=== PATIENT | female | born 1950 | race Caucasian/White ===

== ENCOUNTER 2021-09-18 15:28 | Inpatient (IN) ==
[2021-09-18] MEDS ORDERED: SODIUM CHLORIDE 0.9% 1,000 ML IV STA (15:45)
[2021-09-18] MEDS ORDERED: HYDROmorphone 2 MG/1 ML VIAL IV STA (15:46)
[2021-09-18] MEDS ORDERED: ONDANSETRON 4 MG/2 ML VIAL IV STA (15:46)
[2021-09-18 16:45] LABS: Basophils % 0.2 % (0.0-0.8); Eosinophils % 0.1 % (0.00-10.9); Hematocrit 40.3 VOL% (35.7-47.0); Immature Granulocytes % 0.4 %; Immature Granulocytes Absolute 0.06 #; Lymphocytes # 0.9 10*3/uL (1.4-4.0); Lymphocytes % 6.7 % (21.3-54.2); Mean Corpuscular HGB Conc 32.3 GM/DL (32-36); Mean Corpuscular Volume 90.6 FL (87-102); Mean Platelet Volume 11.8 FL (9.6-12.0); Neutrophils % 88.6 % (38.7-73.9); Platelet Count 173 T/CUMM (130-400); Red Blood Count 4.45 MC/CUMM (3.8-5.5); Red Cell Distribution Width 13.6 % (9.3-17.3); White Blood Count 13.5 T/CUMM (4-12)
[2021-09-18 16:53] LABS: INR 1.1; PT Patient Result 11.9 SECS (10.5-12.0); Partial Thromboplastin Time 21.8 SECS (23.8-32.1)
[2021-09-18] MEDS ORDERED: GLUCAGON 1 MG VIAL IM PRN (16:59)
[2021-09-18] MEDS ORDERED: DOCUSATE SODIUM 100 MG CAPSULE PO PRN (16:59)
[2021-09-18] MEDS ORDERED: ALBUTEROL 2.5 MG/3 ML NEB RESP TX PRN (16:59)
[2021-09-18] MEDS ORDERED: ACETAMINOPHEN 325 MG TABLET PO PRN (16:59)
[2021-09-18] MEDS ORDERED: hydrALAZINE 20 MG/1 ML VIAL IV PRN (16:59)
[2021-09-18 17:00] LABS: Albumin 3.9 G/DL (3.4-5.0); Bilirubin,Total 0.9 MG/DL (0.20-1.00); Calcium 9.1 MG/DL (8.5-10.1); Osmolality,Calculated 288.1 MOS/KG (273-304); Potassium 3.6 MMOL/L (3.5-5.1); Total Protein 6.9 G/DL (6.4-8.2)
[2021-09-18] MEDS ORDERED: DEXTROSE 50% 25 GM/50 ML SYRINGE IV PRN (17:06)
[2021-09-18 17:54] LABS: Bacteria,Urine Few /HPF (Few); Bilirubin,Urine Negative (Negative); Blood, Urine Negative (Negative); Glucose,Urine (UA) Negative (Negative); Hyaline Casts,Urine 5 /LPF (0-3); Ketones,Urine 20 mg/dL (Negative); Mucus,Urine Few /LPF (Occasional); Nitrite,Urine Negative (Negative); Protein,Urine 30 MG/DL; RBC,Urine 3 /HPF (0-4); Squamous Epithelial Cell,Urine Occasional /HPF (0-10); Urine Appearance Slightly Hazy (Clear); Urine Color Yellow (Yellow); Urine Specific Gravity 1.018 (1.001-1.035); Urine Urobilinogen < 2.0 EU/DL (<2.0)
[2021-09-18] MEDS: LACTATED RINGERS 1,000 ML IV SCH (20:27)
[2021-09-18] MEDS: ONDANSETRON 4 MG/2 ML VIAL IV PRN (21:17)
[2021-09-19] MEDS: ONDANSETRON 4 MG/2 ML VIAL IV PRN (01:04)
[2021-09-19 05:22] LABS: Basophils % 0.1 % (0.0-0.8); Hematocrit 34.4 VOL% (35.7-47.0); Hemoglobin 11.1 GM/DL (12.0-16.0); Immature Granulocytes % 0.5 %; Immature Granulocytes Absolute 0.04 #; Lymphocytes # 0.8 10*3/uL (1.4-4.0); Lymphocytes % 9.3 % (21.3-54.2); Mean Corpuscular HGB Conc 32.3 GM/DL (32-36); Mean Corpuscular Volume 90.5 FL (87-102); Mean Platelet Volume 12.2 FL (9.6-12.0); Monocytes % 7.7 % (1.7-12.7); Neutrophils % 82.4 % (38.7-73.9); Platelet Count 130 T/CUMM (130-400); Red Cell Distribution Width 13.5 % (9.3-17.3); White Blood Count 8.8 T/CUMM (4-12)
[2021-09-19 05:55] LABS: Calcium 8.3 MG/DL (8.5-10.1); Osmolality,Calculated 282.3 MOS/KG (273-304); Potassium 3.4 MMOL/L (3.5-5.1); Risk Ratio 2.1; Thyroid Stimulating Hormone 1.11 uIU/ml (0.358-3.74); VLDL Cholesterol 7.6 MG/DL
[2021-09-19] MEDS ORDERED: propofoL 200 MG/20 ML VIAL IV ONE (06:56)
[2021-09-19] MEDS ORDERED: LIDOCAINE 2% 5 ML VIAL ONE (06:56)
[2021-09-19] MEDS ORDERED: SUCCINYLCHOLINE 200 MG/10 ML VIAL ONE (06:56)
[2021-09-19] MEDS ORDERED: fentaNYL 100 MCG/2 ML VIAL ONE (06:56)
[2021-09-19] MEDS ORDERED: ROCURONIUM 50 MG/5 ML VIAL IV ONE (06:56)
[2021-09-19] MEDS ORDERED: MIDAZOLAM 2 MG/2 ML VIAL ONE (06:56)
[2021-09-19] MEDS ORDERED: VANCOMYCIN INJ 1,000 MG in SODIUM CHLORIDE 0.9% 250 ML IV ONE (07:00)
[2021-09-19] MEDS ORDERED: ceFAZolin 2,000 MG/50 ML DUPLEX IV ONE (07:00)
[2021-09-19] MEDS ORDERED: ePHEDrine 50 MG/ML VIAL ONE (07:40)
[2021-09-19] MEDS ORDERED: VANCOMYCIN 1,000 MG VIAL ONE (07:43)
[2021-09-19] MEDS ORDERED: ceFAZolin 1,000 MG VIAL ONE (07:43)
[2021-09-19] MEDS ORDERED: SODIUM CHLORIDE 0.9% 100 ML IV ONE (07:55)
[2021-09-19] MEDS ORDERED: TRANEXAMIC ACID 1,000 MG/10 ML VIAL ONE (07:55)
[2021-09-19] MEDS ORDERED: SODIUM CHLORIDE 0.9% 250 ML IV ONE (07:55)
[2021-09-19] MEDS ORDERED: ACETAMINOPHEN INJ 1,000 MG/100 ML VIAL IV ONE (08:23)
[2021-09-19] MEDS ORDERED: ONDANSETRON 4 MG/2 ML VIAL ONE (08:28)
[2021-09-19] MEDS ORDERED: DEXAMETHASONE 4 MG/1 ML VIAL ONE ×2 (08:28→08:37)
[2021-09-19] MEDS ORDERED: GLYCOPYRROLATE 0.4 MG/2 ML VIAL ONE (08:29)
[2021-09-19] MEDS: LACTATED RINGERS 1,000 ML IV SCH ×3 (08:30→21:51)
[2021-09-19] MEDS ORDERED: NEOSTIGMINE 10 MG/10 ML VIAL ONE (08:30)
[2021-09-19] MEDS ORDERED: SEVOFLURANE 1 UNIT/15 MINUTE INH ONE (08:41)
[2021-09-19] MEDS ORDERED: LACTATED RINGERS 1,000 ML IV ONE (08:44)
[2021-09-19] MEDS ORDERED: BISACODYL 10 MG SUPP RECTAL PRN (08:46)
[2021-09-19] MEDS ORDERED: diphenhydrAMINE CAP 25 MG CAPSULE PO PRN (08:46)
[2021-09-19] MEDS ORDERED: TEMAZEPAM 7.5 MG CAPSULE PO PRN (08:46)
[2021-09-19] MEDS ORDERED: MAGNESIUM HYDROXIDE SUSP 30 ML UDCUP PO PRN (08:46)
[2021-09-19] MEDS ORDERED: LACTULOSE 20 GM/30 ML UDCUP PO PRN (08:46)
[2021-09-19] MEDS ORDERED: MORPHINE 2 MG/1 ML SYRINGE IV PRN ×2 (08:46→09:06)
[2021-09-19] MEDS: PANTOPRAZOLE 40 MG TABLET PO SCH (10:25)
[2021-09-19] MEDS: MULTIVITAMIN (OCUVITE) TABLET PO SCH (10:25)
[2021-09-19] MEDS: ceFAZolin 2,000 MG/50 ML DUPLEX IV SCH ×2 (15:54→21:25)
[2021-09-19] MEDS: FONDAPARINUX 2.5 MG/0.5 ML SYRINGE SUBCUT SCH (21:25)
[2021-09-20 04:59] LABS: Basophils % 0.1 % (0.0-0.8); Hematocrit 32.1 VOL% (35.7-47.0); Hemoglobin 10.5 GM/DL (12.0-16.0); Immature Granulocytes % 0.6 %; Immature Granulocytes Absolute 0.06 #; Lymphocytes % 9.9 % (21.3-54.2); Mean Corpuscular HGB Conc 32.7 GM/DL (32-36); Mean Corpuscular Volume 89.7 FL (87-102); Monocytes % 9.1 % (1.7-12.7); Neutrophils % 80.3 % (38.7-73.9); Platelet Count 124 T/CUMM (130-400); Red Blood Count 3.58 MC/CUMM (3.8-5.5); Red Cell Distribution Width 13.7 % (9.3-17.3); White Blood Count 10.4 T/CUMM (4-12)
[2021-09-20 05:13] LABS: Calcium 8.4 MG/DL (8.5-10.1); Osmolality,Calculated 282.1 MOS/KG (273-304); Potassium 3.6 MMOL/L (3.5-5.1)
[2021-09-20] MEDS: MULTIVITAMIN (OCUVITE) TABLET PO SCH (08:33)
[2021-09-20] MEDS: CHOLECALCIFEROL 5,000 UNIT TABLET PO SCH (08:33)
[2021-09-20] MEDS: ATORVASTATIN 10 MG TABLET PO SCH (08:33)
[2021-09-20] MEDS: PANTOPRAZOLE 40 MG TABLET PO SCH (08:33)
[2021-09-20] MEDS ORDERED: TUBERCULIN SKIN TEST 0.1 ML SYRINGE INTRADERM ONE (10:30)
[2021-09-20] MEDS: LACTATED RINGERS 1,000 ML IV SCH ×2 (10:50→21:22)
[2021-09-20] MEDS: FONDAPARINUX 2.5 MG/0.5 ML SYRINGE SUBCUT SCH (21:20)
[2021-09-21 05:41] LABS: Basophils % 0.4 % (0.0-0.8); Eosinophils # 0.1 10*3/uL (0.0-0.87); Eosinophils % 0.6 % (0.00-10.9); Hemoglobin 10.6 GM/DL (12.0-16.0); Immature Granulocytes % 0.4 %; Immature Granulocytes Absolute 0.04 #; Lymphocytes # 1.3 10*3/uL (1.4-4.0); Mean Corpuscular HGB Conc 32.1 GM/DL (32-36); Mean Corpuscular Volume 89.4 FL (87-102); Mean Platelet Volume 12.6 FL (9.6-12.0); Monocytes % 10.6 % (1.7-12.7); Platelet Count 127 T/CUMM (130-400); Red Blood Count 3.69 MC/CUMM (3.8-5.5); Red Cell Distribution Width 13.8 % (9.3-17.3); White Blood Count 9.9 T/CUMM (4-12)
[2021-09-21 06:09] LABS: Calcium 8.4 MG/DL (8.5-10.1); Osmolality,Calculated 276.5 MOS/KG (273-304); Potassium 3.2 MMOL/L (3.5-5.1)
[2021-09-21] MEDS: CHOLECALCIFEROL 5,000 UNIT TABLET PO SCH (08:18)
[2021-09-21] MEDS: PANTOPRAZOLE 40 MG TABLET PO SCH (08:18)
[2021-09-21] MEDS: ATORVASTATIN 10 MG TABLET PO SCH (08:18)
[2021-09-21] MEDS: MULTIVITAMIN (OCUVITE) TABLET PO SCH (08:18)
[2021-09-21] MEDS ORDERED: PHENOL 1.4% THROAT SPRAY 177 ML BOTTLE PO PRN (11:21)
[2021-09-21] MEDS: POTASSIUM CHLORIDE 20 MEQ TABLET PO PRN ×4 (13:22→19:39)
[2021-09-21] MEDS: FONDAPARINUX 2.5 MG/0.5 ML SYRINGE SUBCUT SCH (21:19)
[2021-09-22 06:24] LABS: Calcium 8.1 MG/DL (8.5-10.1); Osmolality,Calculated 279.3 MOS/KG (273-304); Potassium 3.8 MMOL/L (3.5-5.1)
[2021-09-22] MEDS: CHOLECALCIFEROL 5,000 UNIT TABLET PO SCH (08:34)
[2021-09-22] MEDS: PANTOPRAZOLE 40 MG TABLET PO SCH (08:35)
[2021-09-22] MEDS: ATORVASTATIN 10 MG TABLET PO SCH (08:35)
[2021-09-22] MEDS: MULTIVITAMIN (OCUVITE) TABLET PO SCH (08:39)
[2021-09-22] MEDS: FONDAPARINUX 2.5 MG/0.5 ML SYRINGE SUBCUT SCH (22:02)
[2021-09-23 05:11] LABS: Basophils % 0.3 % (0.0-0.8); Eosinophils # 0.2 10*3/uL (0.0-0.87); Eosinophils % 2.8 % (0.00-10.9); Hematocrit 36.7 VOL% (35.7-47.0); Hemoglobin 11.7 GM/DL (12.0-16.0); Immature Granulocytes % 0.6 %; Immature Granulocytes Absolute 0.04 #; Lymphocytes # 1.4 10*3/uL (1.4-4.0); Lymphocytes % 21.6 % (21.3-54.2); Mean Corpuscular HGB Conc 31.9 GM/DL (32-36); Mean Corpuscular Volume 90.2 FL (87-102); Monocytes % 11.8 % (1.7-12.7); Neutrophils % 62.9 % (38.7-73.9); Platelet Count 170 T/CUMM (130-400); Red Blood Count 4.07 MC/CUMM (3.8-5.5); Red Cell Distribution Width 13.5 % (9.3-17.3); White Blood Count 6.5 T/CUMM (4-12)
[2021-09-23 05:32] LABS: Calcium 8.9 MG/DL (8.5-10.1); Osmolality,Calculated 278.4 MOS/KG (273-304); Potassium 3.6 MMOL/L (3.5-5.1)
[2021-09-23] MEDS: MULTIVITAMIN (OCUVITE) TABLET PO SCH (08:57)
[2021-09-23] MEDS: CHOLECALCIFEROL 5,000 UNIT TABLET PO SCH (08:57)
[2021-09-23] MEDS: PANTOPRAZOLE 40 MG TABLET PO SCH (08:58)
[2021-09-23] MEDS: ATORVASTATIN 10 MG TABLET PO SCH (08:58)
[2021-09-23] MEDS ORDERED: POLYETHYLENE GLYCOL POWDER 17 GM PACK PO SCH (10:30)
[2021-09-23] MEDS ORDERED: DOCUSATE SODIUM 100 MG CAPSULE PO SCH (10:30)
[2021-09-23 11:42] VITALS: BP 123/65
== END 2021-09-23 15:30 | disposition home health service (06) | DRG 522 ==
LOC: EDUNIT# → EDBD → N.ED 15:28 → N.EDINP 16:59 → N.3E 18:48
PROVIDERS: ADMIT Internal Medicine; ATTEND Internal Medicine